=== PATIENT | female | born 1950 | race Caucasian/White ===

== ENCOUNTER 2020-12-31 14:28 | Emergency (ER) | payer MEDICARE, BC ==
[2020-12-31] MEDS ORDERED: Metoclopramide 10 MG/2 ML SDV IVPUSH ONE (14:50)
--- NOTE | 2020-12-31 14:54 | EDM.PDOC ---
ED HPI GENERAL MEDICAL PROBLEM - General Chief Complaint: Respiratory Problem Stated Complaint: ABDOMINAL PAIN Time Seen by Provider: 12/31/20 14:42 Source of Information: Reports: Patient History Limitations: Reports: No Limitations - History of Present Illness INITIAL COMMENTS - FREE TEXT/NARRATIVE: Patient is a 70-year-old female who presents today for nausea vomiting fatigue. Patient is here with her as well who tested positive for Covid a few days ago. Patient states that she is been taking care of him but today was too tired to do it. Patient states that she has not had much of appetite and has some body aches but denies any shortness of breath chest pain or other complaints. - Related Data Allergies Allergy/AdvReac Type Severity Reaction Status Date / Time aspirin Allergy Hives Verified 12/31/20 15:03 Penicillins Allergy Hives Verified 12/31/20 15:03 Home Meds: Home Meds Candesartan [Atacand] 32 mg PO DAILY 12/31/20 [History] Hydroxychloroquine [Plaquenil] 200 mg PO BID 12/31/20 [History] Ivermectin 24 mg PO DAILY 12/31/20 [History] Levothyroxine [Synthroid] 50 mcg PO ACBREAKFAST 12/31/20 [History] Nebivolol HCl [Bystolic] 20 mg PO DAILY 12/31/20 [History] predniSONE [Prednisone] 40 mg PO DAILY 12/31/20 [History] ED ROS GENERAL - Review of Systems Review Of Systems: See Below Constitutional: Reports: No Symptoms HEENT: Reports: No Symptoms Respiratory: Reports: No Symptoms Cardiovascular: Reports: No Symptoms Endocrine: Reports: No Symptoms GI/Abdominal: Reports: Nausea : Reports: No Symptoms Musculoskeletal: Reports: No Symptoms Skin: Reports: No Symptoms Neurological: Reports: No Symptoms Psychiatric: Reports: No Symptoms Hematologic/Lymphatic: Reports: No Symptoms Immunologic: Reports: No Symptoms ED EXAM, GENERAL - Physical Exam Exam: See Below Exam Limited By: No Limitations General Appearance: Alert, WD/WN, No Apparent Distress Respiratory/Chest: No Respiratory Distress, Lungs Clear, Normal Breath Sounds Cardiovascular: Normal Peripheral Pulses, Regular Rate, Rhythm GI/Abdominal: Normal Bowel Sounds, Soft, Non-Tender Neurological: Alert, Oriented, Normal Cognition, Normal Gait Course - Vital Signs Last Recorded V/S: Last Vital Signs Temp 98.6 F 12/31/20 15:03 Pulse 74 04/29/21 15:03 Resp 17 12/31/20 15:03 BP 149/65 H 12/31/20 15:03 Pulse Ox 97 12/31/20 15:03 - Orders/Labs/Meds Orders: Active Orders 24 hr Category Date Time Status Calcium Carbonate [Tums] Med 12/31/20 16:19 Once 1,000 mg PO ONETIME ONE Magnesium Oxide Med 12/31/20 16:19 Once 400 mg PO ONETIME ONE Labs: Laboratory Tests 12/31/20 12/31/20 Range/Units 15:05 15:05 WBC 3.29 L (4.0-11.0) K/uL RBC 4.26 L (4.30-5.90) M/uL Hgb 13.1 (12.0-16.0) g/dL Hct 39.5 (36.0-46.0) % MCV 92.7 (80.0-98.0) fL MCH 30.8 (27.0-32.0) pg MCHC 33.2 (31.0-37.0) g/dL RDW Std Deviation 46.3 (28.0-62.0) fl RDW Coeff of Gianfranco 14 (11.0-15.0) % Plt Count 162 (150-400) K/uL MPV 9.30 (7.40-12.00) fL Neut % (Auto) 66.9 (48.0-80.0) % Lymph % (Auto) 23.4 (16.0-40.0) % Preston % (Auto) 8.2 (0.0-15.0) % Eos % (Auto) 1.2 (0.0-7.0) % Baso % (Auto) 0.3 (0.0-1.5) % Neut # (Auto) 2.2 (1.4-5.7) K/uL Lymph # (Auto) 0.8 (0.6-2.4) K/uL Preston # (Auto) 0.3 (0.0-0.8) K/uL Eos # (Auto) 0.0 (0.0-0.7) K/uL Baso # (Auto) 0.0 (0.0-0.1) K/uL Nucleated RBC % 0.0 /100WBC Nucleated RBCs # 0 K/uL Sodium 140 (136-145) mmol/L Potassium 4.0 (3.5-5.1) mmol/L Chloride 104 (98-107) mmol/L Carbon Dioxide 24.6 (21.0-32.0) mmol/L BUN 15 (7.0-18.0) mg/dL Creatinine 1.0 (0.6-1.0) mg/dL Est Cr Clr Drug Dosing 49.45 mL/min Estimated GFR (MDRD) 54.5 ml/min Glucose 101 (74-106) mg/dL Calcium 7.9 L (8.5-10.1) mg/dL Magnesium 1.7 L (1.8-2.4) mg/dL Total Bilirubin 0.3 (0.2-1.0) mg/dL AST 30 (15-37) IU/L ALT 33 (14-63) IU/L Alkaline Phosphatase 93 (46-116) U/L Creatine Kinase 60 (26-308) U/L Total Protein 7.2 (6.4-8.2) g/dL Albumin 3.4 (3.4-5.0) g/dL Globulin 3.8 (2.6-4.0) g/dL Albumin/Globulin Ratio 0.9 (0.9-1.6) Lipase 82 (73-393) U/L Meds: Medications Discontinued Medications Generic Name Dose Route Start Last Admin Trade Name Freq PRN Reason Stop Dose Admin Metoclopramide HCl 10 mg 12/31/20 14:50 12/31/20 15:14 Metoclopramide 10 Mg/2 Ml Sdv IVPUSH 12/31/20 14:51 10 mg ONETIME ONE Administration - Re-Assessments/Exams Free Text/Narrative Re-Assessment/Exam: 12/31/20 16:20 Patient magnesium and calcium are both low we will give p.o. to replete tomasa ctrolytes. Patient was well-tolerated bottle Gatorade patient will be discharged home. Departure - Departure Time of Disposition: 16:20 Disposition: Home, Self-Care 01 Condition: Good Clinical Impression: Viral illness Clinical Impression: (Ruled Out): Viral respiratory illness - Discharge Information *PRESCRIPTION DRUG MONITORING PROGRAM REVIEWED*: Not Applicable *COPY OF PRESCRIPTION DRUG MONITORING REPORT IN PATIENT SUSY: Not Applicable Instructions: Viral Illness, Adult Referrals: PCP,Not In Area [Primary Care Provider] - Forms: ED Department Discharge Additional Instructions: The following information is given to patients seen in the emergency department who are being discharged to home. This information is to outline your options for follow-up care. We provide all patients seen in our emergency department with a follow-up referral. The need for follow-up, as well as the timing and circumstances, are variable depending upon the specifics of your emergency department visit. If you don't have a primary care physician on staff, we will provide you with a referral. We always advise you to contact your personal physician following an emergency department visit to inform them of the circumstance of the visit and for follow-up with them and/or the need for any referrals to a consulting specialist. The emergency department will also refer you to a specialist when appropriate. This referral assures that you have the opportunity for follow-up care with a specialist. All of these measure are taken in an effort to provide you with optimal care, which includes your follow-up. Under all circumstances we always encourage you to contact your private physician who remains a resource for coordinating your care. When calling for follow-up care, please make the office aware that this follow-up is from your recent emergency room visit. If for any reason you are refused follow-up, please contact the [facility] Emergency Department at and asked to speak to the emergency department charge nurse. Please follow up with your primary care physician. If you do not have a primary care physician, see below: [facility] [address] [place] [id number] [facility] [address] [place] [address] Baby not bothering anybody you were seen today for nausea and weakness. You likely have Covid but she refused to have a Covid test done as we cannot confirm that. We gave you some nausea medication we will send you home with some. Please continue to stay hydrated and have any other complaints please return to the ED. Sepsis Event Note (ED) - Focused Exam Vital Signs: Vital Signs Temp Pulse Resp BP Pulse Ox 12/31/20 15:03 98.6 F 74 17 149/65 H 97 - My Orders Last 24 Hours: My Active Orders 12/31/20 16:19 Calcium Carbonate [Tums] 1,000 mg PO ONETIME ONE Magnesium Oxide 400 mg PO ONETIME ONE - Assessment/Plan Last 24 Hours: My Active Orders 12/31/20 16:19 Calcium Carbonate [Tums] 1,000 mg PO ONETIME ONE Magnesium Oxide 400 mg PO ONETIME ONE Plan: She is a 70-year-old female who was brought in today for possible Covid. Patient has no respiratory complaints but states she has some nausea and slight headache. Patient will be given Reglan for the nausea and hopefully take care of the headaches as well and also given a liter of fluids and reassess.
[2020-12-31 15:44] LABS: CARBON DIOXIDE,CO2 24.6 mmol/L (21.0-32.0)
--- NOTE | 2020-12-31 15:56 | CR ---
INDICATION: possible COVID TECHNIQUE: Chest 1 view. COMPARISON: None. FINDINGS: Cardiovascular and mediastinum: Heart size and vasculature are normal in caliber and appearance. Mediastinum is within normal limits. Lungs and pleural space: Lungs are clear. No sign of infiltrate or mass. No sign of pleural effusion. No pneumothorax. Bones and soft tissues: No significant findings. IMPRESSION: Unremarkable chest. Dictated by: Oswaldo Rose MD @ 12/31/2020 15:55:41 (Electronically Signed)
[2020-12-31] MEDS ORDERED: Magnesium Oxide 400 MG Tab PO ONE (16:19)
[2020-12-31] MEDS ORDERED: Calcium Carbonate 500 MG Tab.Chew PO ONE (16:19)
== END 2020-12-31 16:55 | disposition home or self-care (01) ==
LOC: MW.ED 14:28
DX: B34.9 Viral infection, unspecified (principal); Z88.0 Allergy status to penicillin; Z88.8 Allergy status to other drugs, medicaments and biological substances; Z79.899 Other long term (current) drug therapy
CPT/HCPCS: 36415; 71045; 80053; 82550; 83690; 83735; 85025; 96374; 99284; A9270; J2765; 99282

== ENCOUNTER 2021-01-02 10:56 | Emergency (ER) | payer MEDICARE, BC ==
[2021-01-02] MEDS ORDERED: Sodium Chloride 0.9% 1,000 ML IV ONE (11:14)
[2021-01-02] MEDS ORDERED: diphenhydrAMINE 50 MG/ML SDV IVPUSH ONE (11:16)
[2021-01-02] MEDS ORDERED: Metoclopramide 10 MG/2 ML SDV IV ONE (11:16)
[2021-01-02 12:04] LABS: BLOOD UREA NITROGEN,BUN 9 mg/dL (7.0-18.0); CARBON DIOXIDE,CO2 25.4 mmol/L (21.0-32.0); CHLORIDE,CL 101 mmol/L (98-107); GLUCOSE RANDOM 110 mg/dL (74-106); POTASSIUM,K 3.8 mmol/L (3.5-5.1); SODIUM,NA 137 mmol/L (136-145)
[2021-01-02] MEDS ORDERED: Magnesium Sulfate/Water 4 GM in Premix Bag 1 BAG IV ONE (12:04)
[2021-01-02 12:17] LABS: CORONAVIRUS COVID-19 NAA POSITIVE (NEGATIVE); INFLUENZA A NAA NEGATIVE (NEGATIVE); INFLUENZA B NAA NEGATIVE (NEGATIVE)
--- NOTE | 2021-01-02 12:26 | CR ---
INDICATION: Pt w/fever and nausea x 1 wk. Covid symptoms. TECHNIQUE: Chest 1 view COMPARISON: 12/31/2020 FINDINGS: Cardiovascular and mediastinum: Tortuosity aorta. Cardiac silhouette enlarged. Lungs and pleural spaces: Patchy ill-defined density right lung base suspected. Additional densities are suspected at the lateral mid left lung zone and perhaps at the left lung base. No effusion or pneumothorax. Bones and soft tissues: Mild degenerative changes. IMPRESSION: Suspicion of faint bilateral infiltrates compatible with COVID. Dictated by Oswaldo Sargent MD @ 01/02/2021 12:24:[address] Oswaldo Sargent @ Jan 02 2021 12:24PM
--- NOTE | 2021-01-02 12:54 | EDM.PDOC ---
ED HPI GENERAL MEDICAL PROBLEM - General Chief Complaint: Fever Stated Complaint: YOLANDA LUKEID Time Seen by Provider: 01/02/21 10:57 Source of Information: Reports: Patient History Limitations: Reports: No Limitations - History of Present Illness INITIAL COMMENTS - FREE TEXT/NARRATIVE: HISTORY AND PHYSICAL: History of present illness: Patient is a 70-year-old female who presents to the ED today with concern of possible COVID-19 infection. Patient states that her is currently in the hospital for COVID-19 and she has been directly in contact with him and taking care of him. Patient states over the past several days she has had nausea and fatigue and states she feels as if she has had a fever but has not checked her temperature at home. Patient states her most prominent symptom is the nausea and states that she was seen in the emergency room 2 days ago, however, at that time she declined COVID-19 testing. Patient states that she would like COVID-19 testing today and states that other than the nausea and fatigue with concern of fever, she feels otherwise well. Patient has a history of hypertension but denies any other health history. Patient denies any other symptoms or concerns. Patient denies chest pain, shortness of breath, or cough. Denies headache, neck stiff ness, change in vision, syncope, or near syncope. Denies vomiting, abdominal pain, diarrhea, constipation, or dysuria. Has not noted any blood in urine or stool. Patient has been eating and drinking appropriately. Review of systems: As per history of present illness and below otherwise all systems reviewed and negative. Past medical history: As per history of present illness and as reviewed below otherwise noncontributory. Surgical history: As per history of present illness and as reviewed below otherwise noncontributory. Social history: See social history for further information Family history: As per history of present illness and as reviewed below otherwise non contributory. Physical exam: General: Patient is alert, oriented, and in no acute distress. Patient laying comfortably on exam table. Vitals stable and reviewed by me. HEENT: Atraumatic, normocephalic, pupils equal and reactive bilaterally, negative for conjunctival pallor or scleral icterus, mucous membranes moist, TMs normal bilaterally, throat clear, neck supple, nontender, trachea midline. No drooling or trismus noted. No meningeal signs. No hot potato voice noted. Lungs: Patient speaking clearly without breathlessness, no wheezing or stridor, no accessory muscle use or respiratory distress. Auscultation deferred due to current COV-ID 19 outbreak. Heart: Auscultation deferred due to current COV-ID 19 outbreak. Abdomen: Soft, nondistended, nontender. Negative for masses or hepatosplen omegaly. Negative for costovertebral tenderness. Pelvis: Stable nontender. Genitourinary: Deferred. Rectal: Deferred. Skin: Intact, warm, dry. No lesions or rashes noted. Extremities: Atraumatic, negative for cords or calf pain. Neurovascular unremarkable. Neuro: Awake, alert, oriented. Cranial nerves II through XII unremarkable. Cerebellum unremarkable. Motor and sensory unremarkable throughout. Exam nonfocal. Notes: Upon arrival to the ED, patient is alert, well-appearing, and in no acute distress. She is vitally stable with oxygen 96% on room air. She has been in close contact with COVID 19 and declined Covid testing 2 days ago due to a nasopharyngeal swab. Patient states she is agreeable to Covid testing today. Patient states that she was given Reglan when she was in the ED prior and states that this helped her nausea greatly. CBC unremarkable. CMP shows mild hypomagnesia at 1.4. Corrected calcium normal at 8.6. Otherwise mild derangements unremarkable. COVID19 positive, flu negative. UA unremarkable. CXR shows suspicion of faint bilateral infiltrates compatible with Covid. Upon reevaluation of patient, she remains vitally stable and comfortable throughout stay in ED. She expresses improvement of her nausea with therapetics given today in the ED. Strict return precautions thoroughly discussed with patient. Discussed importance for follow-up with a primary care provider following Covid quarantine restrictions. Voices understanding and is agreeable to plan of care. Denies any further questions or concerns at this time. Diagnostics: CBC, CMP, UA, CXR, COVID/Flu Therapeutics: NS, Magnesium IV, Reglan, Benadryl (There is a severe interaction with Zofran and patients RX) Prescription: Reglan Impression: COVID 19 infection Hypomagnesia, mild Plan: 1. Your COVID-19 screening is positive. That means you do have the coronavirus and are considered contagious. Your vital signs and oxygen saturation are well enough that you were able to monitor your symptoms at home. Continue to monitor for trouble breathing, new confusion or inability to arouse, bluish lips or face or any of the other symptoms we discussed -if this occurs please return to the emergency room.Continue to monitor your health at home for worsening symptoms so that you can be taken care of and treated quickly if needed. 2. Please self quarantine until 10 days have passed since your symptoms began AND you are fever free (<100.4 degrees fahrenheit) for 24 hours without the use of fever-reducing medications AND symptoms are improving. You should restrict activities outside of your home, except for getting medical care. Do not go to work, school, or public areas. Avoid using public transportation, ride-sharing, or taxis. Inform any persons that you have been in contact with since you started becoming symptomatic that you have tested positive; they should be made aware and take the appropriate steps as needed. 3. Take the medications as we prescribed as discussed. You can take NyQuil during the evening to help get a restful night sleep. 4. You may alternate Tylenol and ibuprofen as needed for pain and fever management. 5. The [facility] department will be calling you and following up with you. The [place] COVID 19 Hotline phone number , They are open Monday - Monday 7am - 7pm. Follow up with your primary care provider for re-evaluation and re-testing after quarantine and discuss when you should be seen. 6. For more specific guidelines regarding isolation/quarantine please visit this website. https://www.health.[place].gov/sites/www/files/documents/Fi les/BERNADINE/coronavirus/Factsheet_for_People_With_COVID-19.pdf 7. Take medication as prescribed. Take 1 dose of Benadryl, 25 mg, 15 to 20 minutes before taking a dose of Reglan to help decrease side effects of Reglan as discussed. Definitive disposition and diagnosis as appropriate pending reevaluation and review of above. - Related Data Allergies Allergy/AdvReac Type Severity Reaction Status Date / Time aspirin Allergy Hives Verified 01/02/21 11:11 Penicillins Allergy Hives Verified 01/02/21 11:11 Home Meds: Home Meds Candesartan [Atacand] 32 mg PO DAILY 12/31/20 [History] Levothyroxine [Synthroid] 50 mcg PO ACBREAKFAST 12/31/20 [History] Nebivolol HCl [Bystolic] 20 mg PO DAILY 12/31/20 [History] Ondansetron [Zofran ODT] 4 mg PO Q6H PRN 3 Days #12 tab.dis 12/31/20 [Rx] Metoclopramide HCl [Reglan] 10 mg PO TID PRN #6 tablet 01/02/21 [Rx] Past Medical History HEENT History: Reports: Impaired Vision, Other (See Below) Other HEENT History: wears glasses Cardiovascular History: Reports: Hypertension Respiratory History: Reports: Sleep Apnea Endocrine/Metabolic History: Reports: Hyperthyroidism - Infectious Disease History Infectious Disease History: Reports: None - Past Surgical History HEENT Surgical History: Reports: None Cardiovascular Surgical History: Reports: None Respiratory Surgical History: Reports: None Endocrine Surgical History: Reports: None Social & Family History - Family History Family Medical History: No Pertinent Family History - Tobacco Use Tobacco Use Status *Q: Never Tobacco User Second Hand Smoke Exposure: No - Caffeine Use Caffeine Use: Reports: None - Recreational Drug Use Recreational Drug Use: No ED ROS GENERAL - Review of Systems Review Of Systems: Comprehensive ROS is negative, except as noted in HPI. ED EXAM, GENERAL - Physical Exam Exam: See Below (see dictation) Course - Vital Signs Last Recorded V/S: Last Vital Signs Temp 99.6 F 01/02/21 10:58 Pulse 72 01/02/21 12:00 Resp 17 01/02/21 12:00 BP 131/58 L 01/02/21 12:00 Pulse Ox 94 L 01/02/21 12:00 - Orders/Labs/Meds Orders: Active Orders 24 hr Category Date Time Status Magnesium Sulfate/Water [Magnesium Sulfate in Water 4 Med 01/02/21 12:04 Active GM/100 ML] 4 gm Premix Bag 1 bag IV ONETIME Medication Orders Magnesium Sulfate 4 gm/ Premix 100 mls @ 25 mls/hr IV ONETIME ONE Stop: 01/02/21 16:03 Last Admin: 01/02/21 12:17 Dose: 25 mls/hr Documented by: LORENZO Labs: Laboratory Tests 01/02/21 01/02/21 01/02/21 Range/Units 11:00 11:00 11:00 WBC 4.53 (4.0-11.0) K/uL RBC 4.20 L (4.30-5.90) M/uL Hgb 12.9 (12.0-16.0) g/dL Hct 38.3 (36.0-46.0) % MCV 91.2 (80.0-98.0) fL MCH 30.7 (27.0-32.0) pg MCHC 33.7 (31.0-37.0) g/dL RDW Std Deviation 44.3 (28.0-62.0) fl RDW Coeff of Gianfranco 13 (11.0-15.0) % Plt Count 173 (150-400) K/uL MPV 9.40 (7.40-12.00) fL Neut % (Auto) 75.9 (48.0-80.0) % Lymph % (Auto) 17.0 (16.0-40.0) % Loup % (Auto) 7.1 (0.0-15.0) % Eos % (Auto) 0.0 (0.0-7.0) % Baso % (Auto) 0.0 (0.0-1.5) % Neut # (Auto) 3.4 (1.4-5.7) K/uL Lymph # (Auto) 0.8 (0.6-2.4) K/uL Loup # (Auto) 0.3 (0.0-0.8) K/uL Eos # (Auto) 0.0 (0.0-0.7) K/uL Baso # (Auto) 0.0 (0.0-0.1) K/uL Nucleated RBC % 0.0 /100WBC Nucleated RBCs # 0 K/uL Sodium 137 (136-145) mmol/L Potassium 3.8 (3.5-5.1) mmol/L Chloride 101 (98-107) mmol/L Carbon Dioxide 25.4 (21.0-32.0) mmol/L BUN 9 (7.0-18.0) mg/dL Creatinine 0.9 (0.6-1.0) mg/dL Est Cr Clr Drug Dosing 54.94 mL/min Estimated GFR (MDRD) > 60.0 ml/min Glucose 110 H (74-106) mg/dL Calcium 8.4 L (8.5-10.1) mg/dL Magnesium (1.8-2.4) mg/dL Total Bilirubin 0.4 (0.2-1.0) mg/dL AST 38 H (15-37) IU/L ALT 32 (14-63) IU/L Alkaline Phosphatase 90 (46-116) U/L Total Protein 7.1 (6.4-8.2) g/dL Albumin 3.2 L (3.4-5.0) g/dL Globulin 3.9 (2.6-4.0) g/dL Albumin/Globulin Ratio 0.8 L (0.9-1.6) Urine Color YELLOW Urine Appearance CLEAR Urine pH 6.5 (5.0-8.0) Ur Specific [place] 1.010 (1.001-1.035) Urine Protein NEGATIVE (NEGATIVE) mg/dL Urine Glucose (UA) NEGATIVE (NEGATIVE) mg/dL Urine Ketones TRACE H (NEGATIVE) mg/dL Urine Occult Blood NEGATIVE (NEGATIVE) Urine Nitrite NEGATIVE (NEGATIVE) Urine Bilirubin NEGATIVE (NEGATIVE) Urine Urobilinogen 0.2 (<2.0) EU/dL Ur Leukocyte Esterase NEGATIVE (NEGATIVE) Influenza Type A RNA (NEGATIVE) Influenza Type B RNA (NEGATIVE) SARS-CoV-2 RNA (SONYA) (NEGATIVE) 01/02/21 01/02/21 Range/Units 11:00 11:29 WBC (4.0-11.0) K/uL RBC (4.30-5.90) M/uL Hgb (12.0-16.0) g/dL Hct (36.0-46.0) % MCV (80.0-98.0) fL MCH (27.0-32.0) pg MCHC (31.0-37.0) g/dL RDW Std Deviation (28.0-62.0) fl RDW Coeff of Gianfranco (11.0-15.0) % Plt Count (150-400) K/uL MPV (7.40-12.00) fL Neut % (Auto) (48.0-80.0) % Lymph % (Auto) (16.0-40.0) % Loup % (Auto) (0.0-15.0) % Eos % (Auto) (0.0-7.0) % Baso % (Auto) (0.0-1.5) % Neut # (Auto) (1.4-5.7) K/uL Lymph # (Auto) (0.6-2.4) K/uL Loup # (Auto) (0.0-0.8) K/uL Eos # (Auto) (0.0-0.7) K/uL Baso # (Auto) (0.0-0.1) K/uL Nucleated RBC % /100WBC Nucleated RBCs # K/uL Sodium (136-145) mmol/L Potassium (3.5-5.1) mmol/L Chloride (98-107) mmol/L Carbon Dioxide (21.0-32.0) mmol/L BUN (7.0-18.0) mg/dL Creatinine (0.6-1.0) mg/dL Est Cr Clr Drug Dosing mL/min Estimated GFR (MDRD) ml/min Glucose (74-106) mg/dL Calcium (8.5-10.1) mg/dL Magnesium 1.6 L (1.8-2.4) mg/dL Total Bilirubin (0.2-1.0) mg/dL AST (15-37) IU/L ALT (14-63) IU/L Alkaline Phosphatase (46-116) U/L Total Protein (6.4-8.2) g/dL Albumin (3.4-5.0) g/dL Globulin (2.6-4.0) g/dL Albumin/Globulin Ratio (0.9-1.6) Urine Color Urine Appearance Urine pH (5.0-8.0) Ur Specific [place] (1.001-1.035) Urine Protein (NEGATIVE) mg/dL Urine Glucose (UA) (NEGATIVE) mg/dL Urine Ketones (NEGATIVE) mg/dL Urine Occult Blood (NEGATIVE) Urine Nitrite (NEGATIVE) Urine Bilirubin (NEGATIVE) Urine Urobilinogen (<2.0) EU/dL Ur Leukocyte Esterase (NEGATIVE) Influenza Type A RNA NEGATIVE (NEGATIVE) Influenza Type B RNA NEGATIVE (NEGATIVE) SARS-CoV-2 RNA (SONYA) POSITIVE H (NEGATIVE) Meds: Medications Generic Name Dose Route Start Last Admin Trade Name Freq PRN Reason Stop Dose Admin Magnesium Sulfate 4 gm/ Premix 100 mls @ 25 mls/hr 01/02/21 12:04 01/02/21 12:17 IV 05/01/21 16:03 25 mls/hr ONETIME ONE Administration Discontinued Medications Generic Name Dose Route Start Last Admin Trade Name Freq PRN Reason Stop Dose Admin Diphenhydramine HCl 25 mg 01/02/21 11:16 01/02/21 11:37 Diphenhydramine 50 Mg/Ml Sdv IVPUSH 01/02/21 11:17 25 mg ONETIME ONE Administration Sodium Chloride 1,000 mls @ 999 mls/hr 01/02/21 11:14 01/02/21 11:34 Normal Saline IV 01/02/21 12:14 999 mls/hr BOLUS ONE Administration Metoclopramide HCl 10 mg 01/02/21 11:16 01/02/21 11:34 Metoclopramide 10 Mg/2 Ml Sdv IV 01/02/21 11:17 10 mg ONETIME ONE Administration Departure - Departure Time of Disposition: 12:53 Disposition: Home, Self-Care 01 Clinical Impression: COVID-19 virus infection, Hypomagnesemia - Discharge Information Prescriptions: Metoclopramide HCl [Reglan] 10 mg PO TID PRN #6 tablet PRN Reason: Nausea/Vomiting Referrals: PCP,Unobtain [Primary Care Provider] - Forms: ED Department Discharge Additional Instructions: The following information is given to patients seen in the emergency department who are being discharged to home. This information is to outline your options for follow-up care. We provide all patients seen in our emergency department with a follow-up referral. The need for follow-up, as well as the timing and circumstances, are variable depending upon the specifics of your emergency department visit. If you don't have a primary care physician on staff, we will provide you with a referral. We always advise you to contact your personal physician following an emergency department visit to inform them of the circumstance of the visit and for follow-up with them and/or the need for any referrals to a consulting specialist. The emergency department will also refer you to a specialist when appropriate. This referral assures that you have the opportunity for follow-up care with a specialist. All of these measure are taken in an effort to provide you with optimal care, which includes your follow-up. Under all circumstances we always encourage you to contact your private physician who remains a resource for coordinating your care. When calling for follow-up care, please make the office aware that this follow-up is from your recent emergency room visit. If for any reason you are refused follow-up, please contact the [facility] Emergency Department at and asked to speak to the emergency department charge nurse. [facility] [address] [place] [address] [facility] [address] [place] [id number] 1. Your COVID-19 screening is positive. That means you do have the coronavirus and are considered contagious. Your vital signs and oxygen saturation are well enough that you were able to monitor your symptoms at home. Continue to monitor for trouble breathing, new confusion or inability to arouse, bluish lips or face or any of the other symptoms we discussed -if this occurs please return to the emergency room.Continue to monitor your health at home for worsening symptoms so that you can be taken care of and treated quickly if needed. 2. Please self quarantine until 10 days have passed since your symptoms began AND you are fever free (<100.4 degrees fahrenheit) for 24 hours without the use of fever-reducing medications AND symptoms are improving. You should restrict activities outside of your home, except for getting medical care. Do not go to work, school, or public areas. Avoid using public transportation, ride-sharing, or taxis. Inform any persons that you have been in contact with since you started becoming symptomatic that you have tested positive; they should be made aware and take the appropriate steps as needed. 3. Take the medications as we prescribed as discussed. You can take NyQuil during the evening to help get a restful night sleep. 4. You may alternate Tylenol and ibuprofen as needed for pain and fever management. 5. The [facility] department will be calling you and following up with you. The [place] COVID 19 Hotline phone number , They are open Monday - Monday 7am - 7pm. Follow up with your primary care provider for re-evaluation and re-testing after quarantine and discuss when you should be seen. 6. For more specific guidelines regarding isolation/quarantine please visit this website. https://www.health.[place].gov/sites/www/files/documents/Files/BERNADINE/coronavirus/Factsh eet_for_People_With_COVID-19.pdf 7. Take medication as prescribed. Take 1 dose of Benadryl, 25 mg, 15 to 20 minutes before taking a dose of Reglan to help decrease side effects of Reglan as discussed. Sepsis Event Note (ED) - Evaluation Sepsis Screening Result: No Definite Risk - Focused Exam Vital Signs: Vital Signs Temp Pulse Resp BP Pulse Ox 01/02/21 12:00 72 17 131/58 L 94 L 01/02/21 11:30 75 18 134/58 L 95 01/02/21 11:03 96 01/02/21 10:58 99.6 F 79 21 H 142/58 H 94 L - My Orders Last 24 Hours: My Active Orders 01/02/21 12:04 Magnesium Sulfate/Water [Magnesium Sulfate in Water 4 GM/100 ML] 4 gm Premix Bag 1 bag IV ONETIME - Assessment/Plan Last 24 Hours: My Active Orders 01/02/21 12:04 Magnesium Sulfate/Water [Magnesium Sulfate in Water 4 GM/100 ML] 4 gm Premix Bag 1 bag IV ONETIME
[2021-01-02] MEDS ORDERED: Magnesium Oxide 400 MG Tab PO ONE (13:56)
== END 2021-01-02 14:30 | disposition home or self-care (01) ==
LOC: MW.ED 10:56
DX: U07.1 COVID-19 (principal); E83.42 Hypomagnesemia; I10 Essential (primary) hypertension; E05.90 Thyrotoxicosis, unspecified without thyrotoxic crisis or storm; Z88.6 Allergy status to analgesic agent; Z88.0 Allergy status to penicillin; Z79.899 Other long term (current) drug therapy
CPT/HCPCS: 0240U; 36415; 71045; 80053; 81003; 83735; 85025; 96365; 96366; 96375; 99283; A9270; J1200; J2765; J3475; J7030